=== PATIENT | female | born 1985 | race Caucasian/White ===

== ENCOUNTER → 2022-11-15 | Outpatient (CLI) | payer OTHER ==
[~2022-11-15] MED LIST: BACL10 PO; BACL20 PO; BUPR150ER PO; CYCL10 PO; Celexa10 MG PO; DULO60 PO; FLUO10 PO; HYDACE5 PO; IBUP600 PO; IBUP800 PO; MULVITMINE PO; NAPR550 PO; Norco 5-325 Ta1 EACH PO; OXYACE5T PO; PRENATAL 19 TA1 EACH; TRAM50 PO; TRAZ50 PO; Ultram50 MG PO; Verotin-Gr Cap1 EACH PO; ZOLP5 PO; Zofran8 MG PO
[2022-11-17 16:07] LABS: HPV 16 Negative (Negative); HPV 18 Negative (Negative); HPV OTHER HR TYPES Negative (Negative)
== END ==
LOC: LAB 14:30 → LAB SHORT 14:30
PROVIDERS: Family Medicine
DX: Z01.419 Encounter for gynecological examination (general) (routine) without abnormal findings (principal)
CPT/HCPCS: 87624; G0145

== ENCOUNTER → 2024-04-28 | Outpatient (CLI) | payer OTHER | LOC: LAB 15:09 → LAB SHORT 15:09 | DX: L98.9 Disorder of the skin and subcutaneous tissue, unspecified (principal) | CPT/HCPCS: 87070; 87075; 87077; 87186; 87205 ==

== ENCOUNTER 2025-04-21 10:18 | Day surgery (SDC) | payer OTHER ==
[~2025-04-21] VITALS: Ht 157.5 cm; Wt 69.0 kg
[2025-04-21] MEDS ORDERED: LEVSOD75 PO (10:40)
[2025-04-21] MEDS ORDERED: ZOLP10 PO (10:40)
[2025-04-21] MEDS ORDERED: SERT100 PO (10:41)
[2025-04-21] MEDS ORDERED: Flexeril10 MG PO (10:41)
[2025-04-21] MEDS ORDERED: LATUDA40 M1 PO (10:42)
[2025-04-21] MEDS ORDERED: CeFAZolin Sodium 2,000 MG VIAL ONE (10:56)
[2025-04-21] MEDS ORDERED: Lidocaine 1%-Epineph 1:200000 30 ML SDV ONE (11:46)
--- NOTE | 2025-04-21 12:00 | NUR ---
04/21/25 1200 Samantha Price PT HAS LEFT WRIST BLOCK COMPLETED BY DR FOY AT 1153 WITH US GUIDANCE. PT WAS INJECTED WITH [id number] LIDOCAINE WITH EPI 9ML MIXED WITH 1ML OF SODIUM BICARB. PT TOLERATED WELL. CALL LIGHT IN REACH.
[2025-04-21 12:48] VITALS: BP 117/75
--- NOTE | 2025-04-21 13:02 | NUR ---
04/21/25 1302 Yudy Aviles PT DENIES ANY PAIN, NO NAUSEA. PT ASKED QUESTIONS APPROPRIATELY. ALL QUESTIONS ANSWERED, CONCERNS ADDRESSED. IV OUT, PT TOLERATED REMOVAL OF IV WELL. PT TOLERATED FLUIDS WELL. PT'S BOYFRIEND AT SIDE OF RECLINER. PT AMBULATES WITH A STEADY GAIT. PT COLLECTED ALL PERSONAL BELONGINGS.
== END 2025-04-21 13:06 | disposition home or self-care (01) ==
LOC: ORSCSDS 10:18
PROVIDERS: Orthopaedic Surgery
PROC: 01N50ZZ Release Median Nerve, Open Approach (ICD-10-PCS; principal; 2025-04-21 12:00)
DX: G56.02 Carpal tunnel syndrome, left upper limb (principal); E03.9 Hypothyroidism, unspecified; F41.8 Other specified anxiety disorders; N28.9 Disorder of kidney and ureter, unspecified; Z79.899 Other long term (current) drug therapy
CPT/HCPCS: J0690; J7120